=== PATIENT | female | born 1970 | race Caucasian/White ===

== ENCOUNTER 2024-05-20 20:01 | Emergency (ER) | payer OTHER, SELFPAY ==
[2024-05-20 20:10] VITALS: BP 138/93
[2024-05-20 20:47] LABS: % Basophils 0.3 % (0-2); % Eosinophils 0.9 % (0-6); % Immature Granulocytes 0.4 % (0-0.5); % Lymphocytes 24.5 % (20.5-51.1); % Monocytes 6.3 % (1.7-9.3); % Neutrophils 67.6 % (42.2-75.2); Absolute Eosinophils 0.1 10^3/uL (0-0.7); Absolute Lymphocytes 2.6 10^3/uL (1.2-3.4); Absolute Monocytes 0.7 10^3/uL (0.1-0.6); Absolute Neutrophils 7.1 10^3/uL (1.4-6.5); Hematocrit 42.5 % (37.0-47.0); Hemoglobin 14.2 g/dL (12.0-16.0); Mean Corp Hgb Conc. 33.4 g/dL (33.0-37.0); Mean Corpuscular Hgb 30.2 pg (27.0-31.0); Mean Corpuscular Volume 90.4 fL (81.0-99.0); Mean Platelet Volume 8.8 fL (7.4-10.4); Nucleated Red Blood Cells % 0 %; Platelet Count 345 10^3/uL (130-400); Red Cell Dist. Width 12.9 % (11.5-14.5); White Blood Cell Count 10.5 10^3/uL (4.8-10.8)
[2024-05-20 21:02] LABS: ALT (SGPT) 48 U/L (0-35); AST (SGOT) 37 U/L (14-36); Albumin 4.7 g/dl (3.5-5.0); Alkaline Phosphatase 78 U/L (38-126); Blood Urea Nitrogen 19 mg/dl (7-17); Carbon Dioxide 28 mmol/L (22-30); Chloride 102 mmol/L (98-107); Glucose 94 mg/dl (70-99); Potassium 4.9 mmol/L (3.5-5.1); Sodium 138 mmol/L (135-145); Total Bilirubin 0.4 mg/dl (0.2-1.3); Total Protein 6.9 g/dl (6.3-8.2); eGFR > 60.00
[2024-05-20 21:15] LABS: Troponin I < 0.012 ng/ml
[2024-05-20 22:23] VITALS: BMI 27.3
[2024-05-20 22:26] VITALS: BP 144/101
[2024-05-20 23:00] VITALS: BP 174/111
[2024-05-21 00:24] VITALS: BP 119/95
[2024-05-21] MEDS: ROXICODONE 5 MG PO (00:25)
[2024-05-21 00:26] VITALS: BP 119/95
[2024-05-21] MEDS: TORADOL 30 MG IM (00:28)
[2024-05-21 01:10] VITALS: BP 127/94
--- NOTE | 2024-05-21 01:10 | ED.GENMED ---
History of Present Illness
General
Chief Complaint: Fall
Source: patient and spouse
Exam Limitations: none
Time Seen by Provider: 05/20/24 23:27
Nursing documentation reviewed up to this point in time: agreed with
History of Present Illness
History of Present Illness:
54-year-old female with a past medical history as documented notable for breast cancer status post mastectomy with bilateral breast implants; she presents to the emergency room with her for evaluation of chest wall/rib pain. Patient reports
that she was moving stuff around on a shelf yesterday and started to feel lightheaded and fell down; she says she did not pass out but she fell to the side and hit her left chest wall/breast on a sharp corner. She said she has had pain in this area
since and it does not seem to be getting better so she came to the emergency room today to be evaluated. She reports a sharp pain in the left chest wall/breast. Worse with movement, breathing, coughing. No relieving factors noted. She denies any
associated shortness of breath. She denies any other injuries from the fall�no head strike, no headache or neck pain, no back pain, no pain in her extremities. Regarding her episode of lightheadedness�she says that she has had this many times in
the past related to orthostatic/positional lightheadedness; she did not have any associated chest pain, shortness of breath, palpitations with the episode and there was no loss of consciousness. She is not on any blood thinners.
Past History
Past History
ED Past Medical History: Cancer (Breast, 15 yrs ago) and Other (Migraines)
ED Past Surgical History: Appendectomy, Cholecystectomy, Gynecological, Orthopedic (L knee replacement Dr. Dwayne Pitts 2018) and Other (Breast reconstruction status post breast CA)
Social History
Tobacco: Non-smoker
Alcohol: Occasional
Drug: None
Personal:
Living: with family
Employment: Employed (self employed)
Family History
Family History: Other
Review of Systems
Review of Systems
All Other Systems: ROS reviewed and negative except as documented in HPI and ROS
Respiratory: Denies cough or trouble breathing
Cardiac: Reports chest pain (Chest wall pain); Denies palpitations
ABD/GI: Denies abdominal pain, nausea or vomiting
: Denies flank pain
Musculoskeletal: Denies neck pain or back pain
Neurological: Denies headache, weakness or numbness
Phy Exam
Physical Exam
Physical Exam:
General: Awake, alert, oriented x3; no acute distress
Head: Normocephalic, atraumatic
Eyes: Conjunctiva normal, EOMI
Throat: Airway intact, handling secretions
Neck: Trachea midline, no cervical spine tenderness
Back: No tenderness in the thoracic or lumbar spine
Lungs: Clear to auscultation bilaterally, no wheezing, rales, rhonchi
Heart: Regular rate and rhythm, no murmurs, gallops, or rubs; she has chest wall/rib tenderness left anterior axillary line approximately ribs 4 through 6 (level of the mammary crease)
Breast: Bilateral mastectomy, breast symmetric no swelling, no hematoma, no localized tenderness of the left breast
Abd: Soft, non distended, nontender
Neuro: No gross deficits
Extremities: Atraumatic, warm and well-perfused, moving all extremities with no pain
Scores
Heart Failure Risk
Heart Failure Risk Score: Not Applicable
Heart Score for Chest Pain Patients
STEMI patient?: Not applicable
Withdrawal Assessment of Alcohol
Withdrawal Assessment Completed?: Not applicable
Course
Orders/Labs/Results
Orders:
Orders
05/20/24 20:13
Electrocardiogram (*1) Urgent
Reason for Study: Chest Pain
Cardiac Monitoring- Treatment ONCE
EKG- Treatment ONCE
Ribs, Left 3 View W/PA Chest CR [CR Ribs-left 3 Vw W/pa Chest] Urgent
Comment:
Reason For Exam: fall
O2 Therapy [RESP] Urgent
Titrate/Wean O2 to maintain O2 sat greater than (%): 90
Special Instructions: Maintain sats >/=90%
Pulse Ox/spot Check [RESP] Urgent
Quantity: 1
Special Instructions: ON ROOM AIR
05/20/24 20:25
Complete Blood Count/With Diff Urgent
Comprehensive Metabolic Panel Urgent
Troponin I Urgent
05/21/24 00:19
Ketorolac [Toradol] 30 mg IM NOW STA
Oxycodone [Roxicodone] 5 mg PO NOW STA
05/21/24 00:20
CT Chest W/o Iv Contrast Urgent
Comment:
Reason For Exam: left breast and CW TTP s/p fall
Abnormal Lab Results
05/20/24
20:25
Absolute Neuts (auto) 7.1 H 10^3/uL
(1.4-6.5)
Absolute Monos (auto) 0.7 H 10^3/uL
(0.1-0.6)
BUN 19 H mg/dl
(7-17)
AST 37 H U/L
(14-36)
ALT 48 H U/L
(0-35)
05/20/24 20:25
05/20/24 20:25
Vital Signs
Initial and Last Documented VS:
Initial Vital Signs
Temp Pulse Resp BP Pulse Ox
36.7 C 89 19 138/93 98
05/20/24 20:10 05/20/24 20:10 05/20/24 20:10 05/20/24 20:10 05/20/24 20:10
Last Documented Vital Signs
Temp Pulse Resp BP Pulse Ox
36.7 C 92 20 119/95 97
05/20/24 20:10 05/21/24 00:26 05/21/24 00:26 05/21/24 00:26 05/21/24 00:26
MDM/Problems Addressed
Differential Diagnosis Includes:
Ruptured implant, breast hematoma, chest wall contusion, rib fracture, pneumothorax
MDM/Problems Addressed:
54-year-old female presents for evaluation of left chest wall/rib pain after a fall�she said she got lightheaded which is a common problem for her and fell and hit her chest on a sharp corner. Vitals and exam as above. Labs sent off including a
CBC and a CMP in triage which were unremarkable�LFTs marginally abnormal but of unlikely acute clinical significance with no abdominal pain or tenderness. She had an EKG which showed sinus rhythm and a troponin which was undetectable�symptoms
consistent for 24+ hours rules out acute [place] furthermore pain is in the chest wall and is reproducible, related to a direct injury. She had x-ray of the ribs which showed no clear fracture and no pneumothorax. Will check CT of the chest to rule out
occult fracture, occult pneumothorax, breast implant rupture or hematoma. Will treat symptomatically. Reassess after the above.
CT chest shows no rib fracture or other acute pathology. Suspect acute chest wall contusion. Patient's pain well-controlled in the ER. Stable for discharge with pain control. Follow-up with PCP as an outpatient. She feels comfortable with this
plan. All questions answered.
Chronic conditions affecting care:
Breast cancer status postmastectomy with bilateral breast implants
*Radiology
Radiology exam reviewed: preliminary read by ED provider and radiology read reviewed
*Pulse Oximetry
Patient hypoxic: no
*EKG
Interpreted by ED Provider?: Yes
Heart Rate: 77
Rate: normal
Rhythm: sinus
[place]: normal axis
Interval: normal interval
QRS Pattern: normal QRS
Ischemia: no ischemia
*Critical Care Note
Total Time (30-74mins, 75-104mins- exclusive of procedures): Not Applicable
Data Reviewed
Source: patient and spouse
ED Attending Note
-
Portions of this chart may have been created with voice recognition software.� Occasional wrong word or��sound alike� substitutions may have occurred due to the inherent limitations of voice recognition software.
Discharge Plan
Departure
Patient Disposition: Home (Routine Discharge)
Date of Disposition: 05/21/24
Time of Disposition: 01:17
Patient with high blood pressure during this ER visit?: No
Discharge Problem:
Chest wall contusion
Instructions: Rib Fracture or Bruised Rib ED
Prescriptions:
New
oxycodone 5 mg tablet
5 mg PO TID PRN (Reason: Pain) Qty: 10 0RF
No Action
sumatriptan succinate [Imitrex] 100 MG tablet
100 mg PO PRN PRN (Reason: migraines)
acetaminophen [Tylenol Extra Strength] 500 mg Tablet
1,000 mg PO PRN PRN (Reason: pain)
diphenhydramine HCl [Benadryl] 25 mg Capsule
25 mg PO PRN PRN (Reason: allergies)
fluticasone propionate [Flonase] 50 mcg/actuation Reynolds,Suspension
2 spray INTRANASAL PRN PRN (Reason: congestion)
Patient Comments:
1 spray each nose
Motrin
2 tab PO PRN PRN (Reason: pain)
docusate sodium 100 MG capsule
100 mg PO PRN PRN (Reason: constipation)
trazodone 50 mg Tablet
50 mg PO HS
amitriptyline 100 mg Tablet
100 mg PO HS
ropinirole 0.5 mg Tablet
0.5 mg PO HS
Referrals:
Varun Gotti CRNP [Family Provider] - Follow up in 5-7 days
Activity Restrictions/Additional Instructions:
Thank you for visiting the Emergency Department at [facility].
1. Please schedule a follow up appointment as directed. Call first thing tomorrow morning to make an appointment.
2. If indicated, please take your medications as instructed and indicated on discharge paperwork.
3. If any of your symptoms do not improve, or persist, or become more severe within 6-12 hours, please return to the emergency department for further care.
4. Please return to the emergency department if you develop a headache, neck pain/stiffness, fever greater than 100.4F, chest pain, shortness of breath, persistent nausea, vomiting, slurred speech, difficulty walking, numbness/tingling, weakness,
signs of infection or any other symptoms that are worrisome to you.
Please call [phone] if you have any questions.
Interventions
Interventions:
*Risk Screen - Suicide Last Done: 05/20/24 20:10
*General Assessment Last Done: 05/20/24 22:25
*Neglect/Abuse Screening Last Done: 05/20/24 20:10
*ED COVID-19 Vaccine History Last Done: 05/20/24 22:25
ED-Musculoskeletal Assessment Last Done: 05/20/24 22:29
ED- Neurological Assessment Last Done: 05/20/24 22:29
ED-Skin Assessment Last Done: 05/20/24 22:29
Discharge Date and Time
Print Language: JAPANESE
== END 2024-05-21 01:29 | disposition home or self-care (01) ==
LOC: EMR 20:01
PROVIDERS: EMERGENCY PHYSICIAN Emergency Medicine; FAMILY PHYSICIAN Nurse Practitioner
DX: S20.212A Contusion of left front wall of thorax, initial encounter (principal); W18.39XA Other fall on same level, initial encounter; W22.8XXA Striking against or struck by other objects, initial encounter; Z85.3 Personal history of malignant neoplasm of breast; Z90.13 Acquired absence of bilateral breasts and nipples; Z98.82 Breast implant status
CPT/HCPCS: 96372; 99285; 71101; 71250; 80053; 84484; 85025; 93005